=== PATIENT | female | born 1965 | race Caucasian/White ===

== ENCOUNTER 2017-11-18 06:08 | Emergency (ER) | payer OTHER ==
[~2017-11-18] VITALS: Ht 162.6 cm; Wt 68.0 kg
[2017-11-18] MEDS ORDERED: NOHOMEMEDICATIONS (06:45)
[2017-11-18] MEDS ORDERED: CLEOCIN HCL150 MG PO (07:13)
[2017-11-18] MEDS ORDERED: NORCO 5-325 TA1 EACH PO (07:13)
== END 2017-11-18 07:29 | disposition home or self-care (01) ==
LOC: ER 06:08
DX: K02.9 Dental caries, unspecified (principal); Z88.0 Allergy status to penicillin

== ENCOUNTER 2018-02-01 08:40 | Emergency (ER) | payer OTHER ==
[~2018-02-01] VITALS: Ht 160 cm; Wt 70.3 kg
[~2018-02-01 08:40] MED LIST: CLEOCIN HCL150 MG PO; NOHOMEMEDICATIONS; NORCO 5-325 TA1 EACH PO
[2018-02-01] MEDS ORDERED: LAMICTAL100 MG PO (08:50)
[2018-02-01] MEDS ORDERED: FLONASE 0.05%50 MCG NASAL (08:51)
[2018-02-01 09:31] LABS: ABSOLUTE NEUTROPHILS 9.6 thou/uL (1.4-8.2); BASOPHILS 0.7 % (0.0-2.0); EOSINOPHILS 0.7 % (0.0-3.0); HEMATOCRIT 42.6 % (37.0-47.0); HEMOGLOBIN 14.7 gm/dL (12.0-15.0); LYMPHOCYTES 15.8 % (24.0-44.0); MCH 31.4 pg (26.0-34.0); MCHC 34.5 g/dL (28.0-37.0); MCV 90.9 fL (80.0-100.0); PLATELET COUNT 420 thou/uL (150-400); POLYS 76.8 % (36.0-66.0); RBC 4.69 mil/uL (4.20-5.00); WBC 12.5 thou/uL (4.0-11.0)
[2018-02-01 09:34] LABS: CALCIUM 9.4 mg/dL (8.5-10.1); CREATININE 0.9 mg/dL (0.6-1.0)
[2018-02-01 09:40] LABS: ALBUMIN 4.2 g/dL (3.4-5.0); TOTAL BILIRUBIN 0.4 mg/dL (<0.1-1.0); TOTAL PROTEIN 7.7 g/dL (6.4-8.2)
[2018-02-01 10:45] LABS: URINE BILIRUBIN NEGATIVE (Negative); URINE BLOOD NEGATIVE (Negative); URINE CLARITY CLEAR; URINE COLOR YELLOW; URINE GLUCOSE-RANDOM* NEGATIVE (Negative); URINE KETONES NEGATIVE (Negative); URINE LEUKOCYTES-REFLEX NEGATIVE (Negative); URINE NITRITE-REFLEX NEGATIVE (Negative); URINE PROTEIN (DIPSTICK) NEGATIVE (Negative); URINE SPECIFIC GRAVITY <= 1.005 (1.005-1.035); URINE UROBILINOGEN 0.2 E.U./dl (0.2-1.0)
[2018-02-01] MEDS ORDERED: BENTYL 10 MG CA10 M1 PO (11:04)
[2018-02-01 11:18] VITALS: BP 105/70
== END 2018-02-01 11:19 | disposition home or self-care (01) ==
LOC: ER 08:40
PROVIDERS: Emergency Medicine
DX: N83.209 Unspecified ovarian cyst, unspecified side (principal); Z90.710 Acquired absence of both cervix and uterus; Z88.0 Allergy status to penicillin

== ENCOUNTER 2018-04-10 16:04 | Emergency (ER) | payer OTHER ==
[~2018-04-10] VITALS: Ht 162.6 cm; Wt 72.6 kg
[~2018-04-10 16:04] MED LIST changes: +BENTYL 10 MG CA10 M1 PO; +FLONASE 0.05%50 MCG NASAL; +LAMICTAL100 MG PO
[2018-04-10] MEDS ORDERED: NORFLEX100 MG PO (16:23)
[2018-04-10] MEDS ORDERED: NAPROSYN500 MG PO (16:23)
[2018-04-10] MEDS ORDERED: HYDROCODONE-AP1 EAC6 PO (17:42)
[2018-04-10 18:02] VITALS: BP 122/70
== END 2018-04-10 18:02 | disposition home or self-care (01) ==
LOC: ER 16:04
DX: G44.209 Tension-type headache, unspecified, not intractable (principal); S16.1XXA Strain of muscle, fascia and tendon at neck level, initial encounter; Z90.710 Acquired absence of both cervix and uterus; Z90.89 Acquired absence of other organs; Z88.0 Allergy status to penicillin; X58.XXXA Exposure to other specified factors, initial encounter; Y92.89 Other specified places as the place of occurrence of the external cause; Y93.89 Activity, other specified; Y99.8 Other external cause status

== ENCOUNTER 2018-09-18 06:26 | Emergency (ER) | payer OTHER ==
[~2018-09-18] VITALS: Ht 162.6 cm; Wt 72.6 kg
[~2018-09-18 06:26] MED LIST changes: +HYDROCODONE-AP1 EAC6 PO; +NAPROSYN500 MG PO; +NORFLEX100 MG PO
[2018-09-18 06:39] VITALS: BP 162/90
[2018-09-18] MEDS ORDERED: NORCO 5-325 TA1 EACH PO (07:21)
[2018-09-18] MEDS ORDERED: CLEOCIN HCL150 MG PO (07:21)
== END 2018-09-18 07:27 | disposition home or self-care (01) ==
LOC: ER 06:26
DX: K04.7 Periapical abscess without sinus (principal); K02.9 Dental caries, unspecified; Z90.89 Acquired absence of other organs; Z90.711 Acquired absence of uterus with remaining cervical stump; Z88.0 Allergy status to penicillin

== ENCOUNTER 2019-02-19 10:16 | Emergency (ER) | payer OTHER ==
[~2019-02-19] VITALS: Ht 162.6 cm; Wt 83.0 kg
[2019-02-19] MEDS ORDERED: KEFLEX500 M1 PO (12:01)
[2019-02-19] MEDS ORDERED: IBUPROFEN 600600 M1 PO (12:01)
[2019-02-19] MEDS ORDERED: NORCO 5-325 TA1 EACH PO (12:01)
[2019-02-19 12:11] VITALS: BP 128/74
== END 2019-02-19 12:13 | disposition home or self-care (01) ==
LOC: ER 10:16
DX: T23.211A Burn of second degree of right thumb (nail), initial encounter (principal); T23.212A Burn of second degree of left thumb (nail), initial encounter; Z90.710 Acquired absence of both cervix and uterus; Z88.0 Allergy status to penicillin; X08.8XXA Exposure to other specified smoke, fire and flames, initial encounter; Y93.89 Activity, other specified; Y92.89 Other specified places as the place of occurrence of the external cause; Y99.8 Other external cause status

== ENCOUNTER 2019-03-12 19:29 | Emergency (ER) | payer OTHER ==
[~2019-03-12] VITALS: Ht 162.6 cm; Wt 81.7 kg
[~2019-03-12 19:29] MED LIST changes: +IBUPROFEN 600600 M1 PO; +KEFLEX500 M1 PO
[2019-03-12 19:45] VITALS: BP 120/72
[2019-03-12] MEDS ORDERED: AUGMENTIN 875-1 EACH PO (20:25)
[2019-03-12] MEDS ORDERED: NORCO 7.5-3251 EACH PO (20:34)
== END 2019-03-12 20:40 | disposition home or self-care (01) ==
LOC: ER 19:29
DX: T23.312A Burn of third degree of left thumb (nail), initial encounter (principal); T23.311A Burn of third degree of right thumb (nail), initial encounter; T31.0 Burns involving less than 10% of body surface; Z90.711 Acquired absence of uterus with remaining cervical stump; Z88.0 Allergy status to penicillin; X19.XXXA Contact with other heat and hot substances, initial encounter; Y93.89 Activity, other specified; Y92.89 Other specified places as the place of occurrence of the external cause; Y99.8 Other external cause status

== ENCOUNTER 2019-03-31 10:57 | Emergency (ER) | payer OTHER ==
[~2019-03-31] VITALS: Ht 162.6 cm; Wt 83.0 kg
[2019-03-31 10:57] VITALS: BP 118/84
[~2019-03-31 10:57] MED LIST changes: +AUGMENTIN 875-1 EACH PO; +NORCO 7.5-3251 EACH PO
== END 2019-03-31 13:36 | disposition home or self-care (01) ==
LOC: ER 10:57
DX: S00.432A Contusion of left ear, initial encounter (principal); H69.92 Unspecified Eustachian tube disorder, left ear; Z88.0 Allergy status to penicillin; Z90.89 Acquired absence of other organs; Z90.711 Acquired absence of uterus with remaining cervical stump; X58.XXXA Exposure to other specified factors, initial encounter; Y92.89 Other specified places as the place of occurrence of the external cause; Y93.89 Activity, other specified; Y99.8 Other external cause status

== ENCOUNTER 2019-04-18 01:17 | Emergency (ER) | payer OTHER ==
[~2019-04-18] VITALS: Ht 162.6 cm; Wt 81.7 kg
[2019-04-18] MEDS ORDERED: PREDNISONE 20 M20 MG PO (02:10)
[2019-04-18 02:33] VITALS: BP 106/73
== END 2019-04-18 02:41 | disposition home or self-care (01) ==
LOC: ER 01:17
DX: L25.9 Unspecified contact dermatitis, unspecified cause (principal); Z88.0 Allergy status to penicillin; Z79.899 Other long term (current) drug therapy; Z90.89 Acquired absence of other organs; Z98.890 Other specified postprocedural states; Z90.711 Acquired absence of uterus with remaining cervical stump

== ENCOUNTER 2019-04-30 02:51 | Emergency (ER) | payer OTHER ==
[~2019-04-30] VITALS: Ht 162.6 cm; Wt 83.0 kg
[~2019-04-30 02:51] MED LIST changes: +PREDNISONE 20 M20 MG PO
[2019-04-30] MEDS ORDERED: CLARITIN10 MG PO (03:05)
[2019-04-30 03:23] LABS: URINE BILIRUBIN NEGATIVE (Negative); URINE BLOOD NEGATIVE (Negative); URINE CLARITY CLEAR; URINE COLOR YELLOW; URINE GLUCOSE-RANDOM* NEGATIVE (Negative); URINE KETONES NEGATIVE (Negative); URINE LEUKOCYTES-REFLEX TRACE (Negative); URINE NITRITE-REFLEX NEGATIVE (Negative); URINE PROTEIN (DIPSTICK) NEGATIVE (Negative); URINE UROBILINOGEN 0.2 E.U./dl (0.2-1.0)
[2019-04-30 03:34] LABS: AMP/METHAMP Negative (Negative); BARBITURATES Negative (Negative); BENZODIAZEPINES Negative (Negative); COCAINE Negative (Negative); METHADONE Negative (Negative); OPIATES POSITIVE (Negative); PCP Negative (Negative)
[2019-04-30 03:50] LABS: ABSOLUTE NEUTROPHILS 8.2 thou/uL (1.4-8.2); BASOPHILS 1.1 % (0.0-2.0); EOSINOPHILS 6.7 % (0.0-3.0); HEMATOCRIT 45.3 % (37.0-47.0); HEMOGLOBIN 15.6 gm/dL (12.0-15.0); LYMPHOCYTES 26.1 % (24.0-44.0); MCH 30.9 pg (26.0-34.0); MCHC 34.3 g/dL (28.0-37.0); MCV 90.1 fL (80.0-100.0); MONOCYTES 5.1 % (1.0-8.0); PLATELET COUNT 400 thou/uL (150-400); RBC 5.03 mil/uL (4.20-5.00); RDW 13.2 % (10.5-14.5); WBC 13.4 thou/uL (4.0-11.0)
[2019-04-30] MEDS ORDERED: KEFLEX500 M1 PO (03:56)
[2019-04-30] MEDS ORDERED: HYDROXYZINE HCL25 M2 PO (03:56)
[2019-04-30] MEDS ORDERED: DIFLUCAN100 MG PO (03:56)
[2019-04-30 03:59] LABS: CALCIUM 9.3 mg/dL (8.5-10.1); CREATININE 0.7 mg/dL (0.6-1.0); POTASSIUM 3.9 mmol/L (3.5-5.1)
[2019-04-30 04:04] LABS: ALBUMIN 3.6 g/dL (3.4-5.0); TOTAL BILIRUBIN 0.2 mg/dL (<0.1-1.0); TOTAL PROTEIN 7.3 g/dL (6.4-8.2)
[2019-04-30 04:12] VITALS: BP 119/80
== END 2019-04-30 04:12 | disposition home or self-care (01) ==
LOC: ER 02:51
PROVIDERS: Emergency Medicine
DX: R21 Rash and other nonspecific skin eruption (principal); H02.846 Edema of left eye, unspecified eyelid; Z90.711 Acquired absence of uterus with remaining cervical stump; Z88.0 Allergy status to penicillin

== ENCOUNTER 2019-05-02 15:07 | Emergency (ER) | payer OTHER ==
[~2019-05-02] VITALS: Ht 162.6 cm; Wt 83.0 kg
[~2019-05-02 15:07] MED LIST changes: +CLARITIN10 MG PO; +DIFLUCAN100 MG PO; +HYDROXYZINE HCL25 M2 PO
[2019-05-02] MEDS ORDERED: PREDNISONE 20 M20 MG PO (16:30)
[2019-05-02 16:44] VITALS: BP 115/75
[2019-05-02] MEDS ORDERED: ELIMITE60 GM TOP (23:15)
== END 2019-05-02 16:40 | disposition home or self-care (01) ==
LOC: ER 15:07
DX: L23.9 Allergic contact dermatitis, unspecified cause (principal); F17.200 Nicotine dependence, unspecified, uncomplicated; Z88.0 Allergy status to penicillin; Z90.89 Acquired absence of other organs; Z90.711 Acquired absence of uterus with remaining cervical stump

== ENCOUNTER 2019-06-19 15:49 | Emergency (ER) | payer OTHER ==
[~2019-06-19] VITALS: Ht 162.6 cm; Wt 83.0 kg
[~2019-06-19 15:49] MED LIST changes: +ELIMITE60 GM TOP
[2019-06-19 16:12] LABS: ABSOLUTE NEUTROPHILS 6.6 thou/uL (1.4-8.2); BASOPHILS 1.3 % (0.0-2.0); EOSINOPHILS 9.3 % (0.0-3.0); HEMATOCRIT 37.3 % (37.0-47.0); HEMOGLOBIN 12.8 gm/dL (12.0-15.0); LYMPHOCYTES 25.9 % (24.0-44.0); MCH 30.8 pg (26.0-34.0); MCHC 34.4 g/dL (28.0-37.0); MCV 89.7 fL (80.0-100.0); MONOCYTES 5.4 % (1.0-8.0); PLATELET COUNT 404 thou/uL (150-400); POLYS 58.1 % (36.0-66.0); RBC 4.16 mil/uL (4.20-5.00); RDW 12.9 % (10.5-14.5); WBC 11.3 thou/uL (4.0-11.0)
[2019-06-19 16:15] LABS: ANION GAP 8 mmol/L (7-16); BUN 12 mg/dL (7-18); CALCIUM 9.5 mg/dL (8.5-10.1); CHLORIDE 106 mmol/L (98-107); CO2 28 mmol/L (21-32); CREATININE 0.9 mg/dL (0.6-1.0); GLUCOSE 118 mg/dL (74-106); POTASSIUM 4.2 mmol/L (3.5-5.1); SODIUM 142 mmol/L (136-145)
[2019-06-19 16:26] LABS: TROPONIN-I <0.06 ng/mL (<0.06)
[2019-06-19] MEDS ORDERED: VENTOLIN HFA 1818 GM INH (16:39)
[2019-06-19] MEDS ORDERED: PREDNISONE 20 M20 M1 PO (16:39)
[2019-06-19 16:40] VITALS: BP 116/81
--- NOTE | 2019-06-21 15:05 | EKG ---
[address] [address] ELECTROCARDIOGRAM REPORT Name: TERRA MCCORD [facility] [id number] Admission: 06/19/19 Attend Phys: Discharge: 06/19/19 Date of : 69 Report #: [id number] THIS REPORT FOR: //name// [facility] ED Test Date: 2019-06-19 Test Time: 15:54:01 Pat Name: TERRA MCCORD Department: Room: Gender: F [employer]: DION : 1965 Requested By: Tong Ji Order Number: [id number] MD: Zachary Kellogg Measurements Intervals [place] Rate: 81 P: 15 SC: 148 QRS: 27 QRSD: 86 T: 21 QT: 377 QTc: 438 Interpretive Statements Sinus rhythm Low voltage, precordial leads Baseline wander in lead(s) II,III,aVF No previous ECG available for comparison Electronically Signed On 06-21-2019 15:04:49 CDT by Zachary Kellogg [email or web address] <ELECTRONICALLY SIGNED> By: Zachary Kellogg MD 06/21/19 1504 [id number] 1554 Zachary Kellogg MD /[email or web address]
== END 2019-06-19 16:56 | disposition home or self-care (01) ==
LOC: ER 15:49
PROVIDERS: Emergency Medicine
DX: J40 Bronchitis, not specified as acute or chronic (principal); Z90.49 Acquired absence of other specified parts of digestive tract; Z90.711 Acquired absence of uterus with remaining cervical stump; Z88.0 Allergy status to penicillin

== ENCOUNTER 2021-09-02 10:44 | Emergency (ER) | payer OTHER ==
[~2021-09-02] VITALS: Ht 154.9 cm; Wt 74.8 kg
[~2021-09-02 10:44] MED LIST changes: +PREDNISONE 20 M20 M1 PO; +VENTOLIN HFA 1818 GM INH
[2021-09-02 10:45] VITALS: BP 127/79
== END 2021-09-02 12:09 | disposition left against medical advice (07) ==
LOC: ER 10:44
DX: R06.02 Shortness of breath (principal); Z53.21 Procedure and treatment not carried out due to patient leaving prior to being seen by health care provider; Z98.890 Other specified postprocedural states; Z90.89 Acquired absence of other organs; Z90.710 Acquired absence of both cervix and uterus; Z88.0 Allergy status to penicillin